=== PATIENT | female | born 1990 | race Two or more races ===

== ENCOUNTER 2020-03-21 22:12 | Emergency (ER) | payer SELFPAY ==
[~2020-03-21] VITALS: Ht 157.5 cm; Wt 62.7 kg
[2020-03-21] MEDS ORDERED: diphenhydrAMINE 25mg capsule PO ONE (22:45)
[2020-03-21 23:30] VITALS: BP 107/44
== END 2020-03-21 23:32 | disposition home or self-care (01) ==
LOC: ER 22:13
DX: S00.86XA Insect bite (nonvenomous) of other part of head, initial encounter (principal); R07.89 Other chest pain; R42 Dizziness and giddiness; G43.909 Migraine, unspecified, not intractable, without status migrainosus; J45.909 Unspecified asthma, uncomplicated; F12.90 Cannabis use, unspecified, uncomplicated; Z85.118 Personal history of other malignant neoplasm of bronchus and lung; Z91.030 Bee allergy status; W57.XXXA Bitten or stung by nonvenomous insect and other nonvenomous arthropods, initial encounter; Y93.89 Activity, other specified; Y92.89 Other specified places as the place of occurrence of the external cause; Y99.8 Other external cause status
CPT/HCPCS: 99282; Q0163

== ENCOUNTER 2023-03-09 13:53 | Emergency (ER) | payer MEDICAID, OTHER ==
[~2023-03-09] VITALS: Ht 149.9 cm; Wt 60.8 kg
[2023-03-09 13:54] VITALS: TEMP 98.6
[2023-03-09 14:22] LABS: URINE HCG POSITIVE (NEG)
[2023-03-09 14:27] LABS: BASOPHILS % (AUTO) 0.4 % (0-1); EOSINOPHILS # (AUTO) 0.1 X10'3 (0-0.9); HEMATOCRIT 38.8 % (35.0-45.0); HEMOGLOBIN 12.7 g/dl (12.0-16.0); LYMPHOCYTES # (AUTO) 1.8 X10'3 (1.1-4.8); LYMPHOCYTES % (AUTO) 22.1 % (21-51); MEAN CORPUSCULAR HEMOGLOBIN 27.1 PG (27.0-31.0); MEAN CORPUSCULAR HGB CONC 32.9 g/dL (33.0-36.5); MEAN CORPUSCULAR VOLUME 82.6 FL (78-98); MEAN PLATELET VOLUME 7.8 FL (7.4-10.4); MONOCYTES # (AUTO) 0.5 X10'3 (0-0.9); MONOCYTES % (AUTO) 6.4 % (2-12); NEUTROPHILS # (AUTO) 5.8 X10'3 (1.8-7.7); NEUTROPHILS % (AUTO) 70.1 % (42-75); PLATELET COUNT 267 X10'3 (140-440); RED CELL DISTRIBUTION WIDTH 18.1 % (11.5-14.5); WHITE BLOOD COUNT 8.2 X10'3 (4.5-11.0)
[2023-03-09 14:30] LABS: CLARITY,URINE CLOUDY (Clear); COLOR,URINE YELLOW (Yellow); GLUCOSE, URINE NEGATIVE (Neg); KETONES,URINE NEGATIVE (Neg); LEUKOCYTE ESTERASE ,URINE NEGATIVE (Neg); NITRITES, URINE NEGATIVE (Neg); OCCULT BLOOD,URINE NEGATIVE (Neg); PROTEIN,URINE TRACE mg/dl (Neg); UROBILINOGEN,URINE 0.2 E.U/dL (0.2-1.0)
[2023-03-09 14:31] LABS: UA COLLECTION TYPE CLN CATCH MIDSTREAM
[2023-03-09 14:37] LABS: MUCUS STRANDS MANY /LPF (Neg); SQUAMOUS EPITHELIAL CELL,UR MANY /LPF (FEW)
[2023-03-09 14:39] LABS: WBC,URINE 0-4 /HPF (0-4)
[2023-03-09 14:40] LABS: BACTERIA,URINE 1+ /HPF (Neg); RBC,URINE 0-2 /HPF (0-2); URINE AMPHETAMINE SCREEN NEGATIVE (Neg); URINE BARBITUATE SCREEN NEGATIVE (Neg); URINE BENZODIAZEPINES SCREEN NEGATIVE (Neg); URINE CANNABINOID SCREEN POSITIVE (Neg); URINE COCAINE SCREEN NEGATIVE (Neg); URINE METHADONE SCREEN NEGATIVE (Neg); URINE OPIATE SCREEN NEGATIVE (Neg); URINE PHENCYCLIDINE SCREEN NEGATIVE (Neg)
[2023-03-09 14:41] LABS: ALANINE AMINOTRANSFERASE 12 U/L (12-78); ALBUMIN 3.4 G/DL (3.4-5.0); ALBUMIN/GLOBULIN RATIO 0.9 (1.1-1.5); ALKALINE PHOSPHATASE 52 IU/L (46-116); ANION GAP 8 (8-16); ASPARTATE AMINO TRANSFERASE 14 U/L (10-37); BILIRUBIN,TOTAL 0.2 MG/DL (0.1-1.0); BLOOD UREA NITROGEN 8 MG/DL (7-18); BUN/CREATININE RATIO 14.8 (10.0-20.0); CALCIUM 8.5 MG/DL (8.5-10.1); CHLORIDE 103 MMOL/L (99-107); CREATININE 0.54 MG/DL (0.40-0.90); GLUCOSE 94 MG/DL (70-104); LIPASE 60 U/L (73-393); POTASSIUM 3.5 MMOL/L (3.5-5.1); SODIUM 135 MMOL/L (135-145); TOTAL CARBON DIOXIDE 24.2 MMOL/L (24-32); eGFR > 90 ML/MIN
[2023-03-09 16:14] VITALS: BP 120/55; PULSE 73; RESP 16; O2SAT 100
== END 2023-03-09 18:12 ==
LOC: ER 13:54
DX: O26.893 Other specified pregnancy related conditions, third trimester (principal); R10.11 Right upper quadrant pain; G43.909 Migraine, unspecified, not intractable, without status migrainosus; J45.909 Unspecified asthma, uncomplicated; F12.10 Cannabis abuse, uncomplicated; Z91.030 Bee allergy status
CPT/HCPCS: 36415; 76700; 76801; 76817; 80053; 80305; 81001; 81025; 83690; 85025; 99284

== ENCOUNTER 2023-07-22 12:54 | Emergency (ER) | payer MEDICAID ==
[~2023-07-22] VITALS: Ht 160 cm; Wt 73.8 kg
[2023-07-22 13:03] VITALS: TEMP 97.6
[2023-07-22 13:24] VITALS: BP 126/64; PULSE 86; RESP 16; O2SAT 100
== END 2023-07-22 13:30 | disposition hospice, inpatient (51) ==
LOC: ER 12:54
DX: N32.89 Other specified disorders of bladder (principal); J45.909 Unspecified asthma, uncomplicated; F12.10 Cannabis abuse, uncomplicated; Z91.030 Bee allergy status
CPT/HCPCS: 99285